=== PATIENT | male | born 1990 | race Caucasian/White ===

== ENCOUNTER 2023-12-08 12:58 | Emergency (ER) | payer BC ==
[~2023-12-08] VITALS: Ht 172.7 cm; Wt 77.3 kg
[2023-12-08 13:21] VITALS: BP 146/96; PULSE 105; TEMP 98; O2SAT 99
[2023-12-08 13:49] VITALS: RESP 14
[2023-12-08] MEDS: TETanus/Pertussis (Acell)/Diphther VAC/PF (Tdap-Adult) 0.5ml syringe IMVAC ONE (14:42)
[2023-12-08] MEDS: LIDOcaine 1% W/epiNEPHrine 1:100,000 20ml vial SQ ONE (15:10)
[2023-12-08] MEDS: bacitracin 15gm ointment TP ONE (15:10)
[2023-12-08] MEDS ORDERED: CEPH-585 PO (15:10)
== END 2023-12-08 15:59 | disposition home or self-care (01) ==
LOC: ER 12:58
DX: S01.01XA Laceration without foreign body of scalp, initial encounter (principal); Z79.2 Long term (current) use of antibiotics; Y08.89XA Assault by other specified means, initial encounter; Y93.89 Activity, other specified; Y92.89 Other specified places as the place of occurrence of the external cause; Y99.8 Other external cause status
CPT/HCPCS: 12002; 70450; 73140; 73630; 90471; 90715; 99285; J3490; J7030; A6449